=== PATIENT | female | born 1960 | race Two or more races ===

== ENCOUNTER 2020-08-11 15:53 | Emergency (ER) | payer MEDICAID ==
[~2020-08-11] VITALS: Ht 157.5 cm; Wt 59.0 kg
[2020-08-11 15:57] VITALS: BP 163/88
[2020-08-11 17:01] LABS: Urine Bacteria NONE SEEN /hpf (None Seen); Urine Blood Negative /uL (Negative); Urine Specific Gravity 1.006 (1.001-1.035); Urine WBC 4 /hpf (0 - 5)
== END 2020-08-11 17:53 | disposition home or self-care (01) ==
LOC: ER 15:55
DX: N39.0 Urinary tract infection, site not specified (principal); E78.5 Hyperlipidemia, unspecified
CPT/HCPCS: 81001

== ENCOUNTER 2020-08-11 23:17 | Emergency (ER) | payer MEDICAID ==
[~2020-08-11] VITALS: Ht 160 cm; Wt 59.0 kg
[2020-08-11 23:57] LABS: Basophils # (auto) 0 10 ^3/uL (0-0.2); Basophils % (auto) 0.8 % (0.0-2.0); Eosinophils # (auto) 0 10 ^3/uL (0-0.8); Eosinophils % (auto) 0.4 % (0.0-7.0); Hematocrit 43.7 % (36.0-46.0); Hemoglobin 15.3 g/dL (12.2-16.2); Lymphocytes # (auto) 1.3 10 ^3/uL (0.4-5.4); Lymphocytes % (auto) 25.5 % (10.0-50.0); Mean Corpuscular Hemoglobin 33.8 pg (28.0-32.0); Mean Corpuscular Volume 96.5 fL (80.0-100.0); Monocytes # (auto) 0.3 10 ^3/uL (0-1.3); Monocytes % (auto) 5.1 % (0.0-12.0); Neutrophils # (auto) 3.5 10 ^3/uL (1.6-8.6); Neutrophils % (auto) 68.2 % (37.0-80.0); Nucleated Red Blood Cells % 0.2 %; Platelet Count (auto) 85 10^3/uL (140-450); Red Blood Cells 4.52 10^6/uL (4.0-5.20); Red Cell Distribution Width 12.6 % (11.8-14.3); White Blood Cell 5.1 10^3/uL (4.4-10.8)
[2020-08-12 00:17] LABS: Albumin 3.9 g/dL (3.4-5.0); Anion Gap 14 (5-15); BUN/Creatinine Ratio 22.2; Blood Urea Nitrogen 8 mg/dL (7-18); Calcium 8.3 mg/dL (8.5-10.1); Carbon Dioxide 20 mmol/L (21-32); Chloride 103 mmol/L (98-107); GFR African American 238 mL/min; GFR Non-African American 197 mL/min; Glucose 112 mg/dL (74-106); Potassium 3.8 mmol/L (3.5-5.1); Sodium 137 mmol/L (136-145)
[2020-08-12 00:24] LABS: Alanine Aminotransferase 35 U/L (13-56); Alkaline Phosphatase 76 U/L (45-117); Aspartate Aminotransferase 49 U/L (15-37); Bilirubin, Total 1.3 mg/dL (0.2-1.0); Total Protein 7.2 g/dL (6.4-8.2)
[2020-08-12] MEDS ORDERED: LORazepam 0.5 MG TAB PO ONE (02:00)
[2020-08-12] MEDS ORDERED: cefTRIAXone SOD 1,000 MG VL IM ONE (02:45)
[2020-08-12 03:29] LABS: Urine Bacteria FEW /hpf (None Seen); Urine Blood Negative /uL (Negative); Urine Mucus FEW (None Seen); Urine Specific Gravity 1.019 (1.001-1.035); Urine WBC 6 /hpf (0 - 5)
[2020-08-12] MEDS ORDERED: LIDOCAINE 1% HCL (LOCAL ANESTH.) INJ 20ML MDV ONE (03:43)
[2020-08-12] MEDS ORDERED: LIDOCAINE 1% HCL (LOCAL ANESTH.) INJ 20ML MDV ID ONE (03:45)
[2020-08-12 04:08] VITALS: BP 134/61
== END 2020-08-12 04:12 | disposition home or self-care (01) ==
LOC: EDBD 23:17 → ER 23:17
DX: N39.0 Urinary tract infection, site not specified (principal); R25.1 Tremor, unspecified; F41.9 Anxiety disorder, unspecified
CPT/HCPCS: 36415; 80053; 81001; 84484; 85025; 93005; 96372; 99284; J0696; J2001; J7030

== ENCOUNTER 2020-09-12 11:17 | Emergency (ER) | payer MEDICAID ==
[~2020-09-12] VITALS: Ht 157.5 cm; Wt 59.0 kg
[2020-09-12 11:55] VITALS: BP 154/86
[2020-09-12] MEDS ORDERED: PHENAZOPYRIDINE HCL 100 MG TAB PO ONE (12:00)
[2020-09-12 12:26] LABS: Urine Bacteria FEW /hpf (None Seen); Urine Blood Negative /uL (Negative); Urine Mucus FEW (None Seen); Urine Specific Gravity 1.012 (1.001-1.035); Urine WBC 1 /hpf (0 - 5)
== END 2020-09-12 12:30 | disposition home or self-care (01) ==
LOC: ER 11:17
DX: N30.00 Acute cystitis without hematuria (principal); E78.5 Hyperlipidemia, unspecified; Z90.710 Acquired absence of both cervix and uterus
CPT/HCPCS: 81001; 81025

== ENCOUNTER 2020-09-12 19:52 | Emergency (ER) | payer MEDICAID ==
[~2020-09-12] VITALS: Ht 165.1 cm; Wt 63.5 kg
[2020-09-12] MEDS ORDERED: ONDANSETRON HCL 4 MG/2 ML VIAL IM ONE (20:45)
[2020-09-12 23:41] LABS: Basophils # (auto) 0 10 ^3/uL (0-0.2); Hemoglobin 13.6 g/dL (12.2-16.2); Mean Corpuscular Hgb Conc. 35.8 g/dL (32.0-36.0); White Blood Cell 2.8 10^3/uL (4.4-10.8)
[2020-09-12 23:43] LABS: Basophils % (auto) 1.3 % (0.0-2.0); Eosinophils # (auto) 0 10 ^3/uL (0-0.8); Eosinophils % (auto) 0.1 % (0.0-7.0); Hematocrit 37.9 % (36.0-46.0); Lymphocytes # (auto) 0.5 10 ^3/uL (0.4-5.4); Lymphocytes % (auto) 17.3 % (10.0-50.0); Mean Corpuscular Hemoglobin 34.7 pg (28.0-32.0); Monocytes # (auto) 0.2 10 ^3/uL (0-1.3); Monocytes % (auto) 7.2 % (0.0-12.0); Neutrophils # (auto) 2.1 10 ^3/uL (1.6-8.6); Neutrophils % (auto) 74.1 % (37.0-80.0); Nucleated Red Blood Cells % 0.2 %; Red Blood Cells 3.91 10^6/uL (4.0-5.20); Red Cell Distribution Width 13.7 % (11.8-14.3)
[2020-09-12 23:58] LABS: Potassium 3.7 mmol/L (3.5-5.1)
[2020-09-13 00:19] LABS: Platelet Count (auto) 52 10^3/uL (140-450)
[2020-09-13 00:56] VITALS: BP 137/69
== END 2020-09-13 01:48 | disposition home or self-care (01) ==
LOC: EDBD 19:52 → ER 19:52
DX: R10.9 Unspecified abdominal pain (principal); R53.83 Other fatigue; R11.2 Nausea with vomiting, unspecified; E78.5 Hyperlipidemia, unspecified; Z90.710 Acquired absence of both cervix and uterus; Z90.89 Acquired absence of other organs
CPT/HCPCS: 36415; 80048; 83605; 85025; 96372; 99285; J2405

== ENCOUNTER 2020-12-29 12:59 | Inpatient (IN) | payer MEDICAID ==
[~2020-12-29] VITALS: Ht 157.5 cm
[2020-12-29 13:58] LABS: Urine Bacteria FEW /hpf (None Seen); Urine Blood Negative /uL (Negative); Urine Mucus FEW (None Seen); Urine Specific Gravity 1.026 (1.001-1.035); Urine WBC 4 /hpf (0 - 5)
[2020-12-29 13:58] LABS: Basophils # (auto) 0.1 10 ^3/uL (0-0.2); Eosinophils # (auto) 0 10 ^3/uL (0-0.8); Lymphocytes # (auto) 1.1 10 ^3/uL (0.4-5.4); Monocytes # (auto) 0.4 10 ^3/uL (0-1.3)
[2020-12-29 14:01] LABS: Basophils % (auto) 2.2 % (0.0-2.0); Eosinophils % (auto) 0.8 % (0.0-7.0); Hematocrit 44.2 % (36.0-46.0); Hemoglobin 15.2 g/dL (12.2-16.2); Lymphocytes % (auto) 26.2 % (10.0-50.0); Mean Corpuscular Hemoglobin 35.6 pg (28.0-32.0); Mean Corpuscular Hgb Conc. 34.4 g/dL (32.0-36.0); Mean Corpuscular Volume 103.6 fL (80.0-100.0); Neutrophils # (auto) 2.5 10 ^3/uL (1.6-8.6); Neutrophils % (auto) 61.8 % (37.0-80.0); Nucleated Red Blood Cells % 0.1 %; Red Blood Cells 4.27 10^6/uL (4.0-5.20); White Blood Cell 4.1 10^3/uL (4.4-10.8)
[2020-12-29 14:17] LABS: Albumin 3.1 g/dL (3.4-5.0); BUN/Creatinine Ratio 14.3; Calcium 8.4 mg/dL (8.5-10.1); Potassium 3.9 mmol/L (3.5-5.1)
[2020-12-29 14:20] LABS: Bilirubin, Total 1.3 mg/dL (0.2-1.0); Total Protein 7.3 g/dL (6.4-8.2)
[2020-12-29] MEDS ORDERED: ONDANSETRON ODT 4 MG TAB PO ONE (14:30)
[2020-12-29] MEDS ORDERED: cefTRIAXone 1GM/50ML D5W 50 ML IV ONE (14:30)
[2020-12-29] MEDS ORDERED: SODIUM CHLORIDE 0.9% 1,000 ML IV ONE (14:45)
[2020-12-29] MEDS ORDERED: MORPHINE SULFATE INJECTION 2 MG/ML SYRG IV PRN (18:30)
[2020-12-29] MEDS ORDERED: ONDANSETRON HCL 4 MG/2 ML VIAL IV PRN (18:30)
[2020-12-29] MEDS ORDERED: ACETAMINOPHEN 325 MG TAB PO PRN (18:30)
[2020-12-29] MEDS ORDERED: ZOLPIDEM TARTRATE 5 MG TAB PO PRN (18:30)
[2020-12-29] MEDS ORDERED: NITROGLYCERIN 0.4 MG SL TAB SL PRN (18:30)
[2020-12-29] MEDS: SODIUM CHLORIDE 0.9% 1,000 ML IV SCH (19:13)
[2020-12-29 23:11] VITALS: BP 150/74
[2020-12-29] MEDS: ATORVASTATIN 20 MG TAB PO SCH (23:11)
[2020-12-30] MEDS ORDERED: ATO40T PO (00:54)
[2020-12-30] MEDS: MORPHINE SULFATE INJECTION 2 MG/ML SYRG IV PRN ×2 (02:11→06:15)
[2020-12-30 05:00] VITALS: BP 147/79
[2020-12-30 05:51] LABS: Eosinophils # (auto) 0 10 ^3/uL (0-0.8); Eosinophils % (auto) 0.4 % (0.0-7.0); Neutrophils # (auto) 2.3 10 ^3/uL (1.6-8.6)
[2020-12-30 05:53] LABS: Basophils # (auto) 0.1 10 ^3/uL (0-0.2); Basophils % (auto) 1.5 % (0.0-2.0); Hematocrit 40.3 % (36.0-46.0); Hemoglobin 13.9 g/dL (12.2-16.2); Lymphocytes # (auto) 0.8 10 ^3/uL (0.4-5.4); Lymphocytes % (auto) 23.8 % (10.0-50.0); Mean Corpuscular Hemoglobin 35.7 pg (28.0-32.0); Mean Corpuscular Hgb Conc. 34.6 g/dL (32.0-36.0); Mean Corpuscular Volume 103.1 fL (80.0-100.0); Monocytes # (auto) 0.3 10 ^3/uL (0-1.3); Monocytes % (auto) 9.7 % (0.0-12.0); Neutrophils % (auto) 64.6 % (37.0-80.0); Nucleated Red Blood Cells % 0.1 %; Red Blood Cells 3.91 10^6/uL (4.0-5.20); Red Cell Distribution Width 14.5 % (11.8-14.3); White Blood Cell 3.5 10^3/uL (4.4-10.8)
[2020-12-30 07:00] LABS: Albumin 2.6 g/dL (3.4-5.0); Calcium 7.7 mg/dL (8.5-10.1); Potassium 3.6 mmol/L (3.5-5.1)
[2020-12-30 07:02] LABS: BUN/Creatinine Ratio 21.9
[2020-12-30 07:04] LABS: Bilirubin, Total 2.2 mg/dL (0.2-1.0); Total Protein 6.2 g/dL (6.4-8.2)
[2020-12-30] MEDS: SODIUM CHLORIDE 0.9% 1,000 ML IV SCH ×2 (08:59→23:47)
[2020-12-30] MEDS: cefTRIAXone 1GM/50ML D5W 50 ML IV SCH (08:59)
[2020-12-30 09:00] VITALS: BP 125/70
[2020-12-30] MEDS ORDERED: chlordiazePOXIDE HCL 25 MG CAP PO PRN (11:30)
[2020-12-30 13:00] VITALS: BP 129/71
[2020-12-30] MEDS: FOLIC ACID 1 MG, MULTIPLE VITAMIN 10 ML, MAGNESIUM SULF SDV 50% 8 MEQ, THIAMINE INJ 100... INJ SCH ×5 (13:01)
[2020-12-30] MEDS: GABAPENTIN 300 MG CAP PO SCH ×2 (13:54→21:15)
[2020-12-30 17:05] VITALS: BP 127/73
[2020-12-30] MEDS: DOCUSATE SOD 100 MG CAP PO SCH (21:15)
[2020-12-30] MEDS: ATORVASTATIN 20 MG TAB PO SCH (21:15)
[2020-12-30] MEDS: LACTULOSE 20Gm/30ML SOLN PO PRN (21:16)
[2020-12-30 23:02] VITALS: BP 152/85
[2020-12-31 05:11] VITALS: BP 120/84
[2020-12-31] MEDS: GABAPENTIN 300 MG CAP PO SCH ×3 (05:28→21:11)
[2020-12-31] MEDS: LACTULOSE 20Gm/30ML SOLN PO PRN (05:38)
[2020-12-31 05:41] LABS: Eosinophils # (auto) 0.1 10 ^3/uL (0-0.8); Monocytes # (auto) 0.4 10 ^3/uL (0-1.3); Nucleated Red Blood Cells % 0.1 %; White Blood Cell 3.4 10^3/uL (4.4-10.8)
[2020-12-31 05:51] LABS: INR 1.41 (0.9-1.15)
[2020-12-31 06:02] LABS: Basophils # (auto) 0 10 ^3/uL (0-0.2); Basophils % (auto) 1.1 % (0.0-2.0); Eosinophils % (auto) 1.5 % (0.0-7.0); Hematocrit 41.5 % (36.0-46.0); Hemoglobin 14.6 g/dL (12.2-16.2); Lymphocytes # (auto) 0.8 10 ^3/uL (0.4-5.4); Lymphocytes % (auto) 22.6 % (10.0-50.0); Mean Corpuscular Hemoglobin 36.5 pg (28.0-32.0); Mean Corpuscular Hgb Conc. 35.2 g/dL (32.0-36.0); Mean Corpuscular Volume 103.6 fL (80.0-100.0); Monocytes % (auto) 11.2 % (0.0-12.0); Neutrophils # (auto) 2.2 10 ^3/uL (1.6-8.6); Neutrophils % (auto) 63.6 % (37.0-80.0); Red Cell Distribution Width 14.2 % (11.8-14.3)
[2020-12-31 06:19] LABS: Albumin 2.5 g/dL (3.4-5.0); Calcium 7.8 mg/dL (8.5-10.1); Potassium 3.6 mmol/L (3.5-5.1)
[2020-12-31 06:21] LABS: BUN/Creatinine Ratio 19.5
[2020-12-31 06:23] LABS: Bilirubin, Total 2.4 mg/dL (0.2-1.0); Total Protein 6.1 g/dL (6.4-8.2)
[2020-12-31 08:59] VITALS: BP 129/85
[2020-12-31] MEDS: cefTRIAXone 1GM/50ML D5W 50 ML IV SCH (09:04)
[2020-12-31] MEDS: DOCUSATE SOD 100 MG CAP PO SCH ×2 (09:05→21:15)
[2020-12-31] MEDS: SODIUM CHLORIDE 0.9% 1,000 ML IV SCH ×3 (09:05→23:45)
[2020-12-31] MEDS: FOLIC ACID 1 MG, MULTIPLE VITAMIN 10 ML, MAGNESIUM SULF SDV 50% 8 MEQ, THIAMINE INJ 100... INJ SCH ×5 (12:27)
[2020-12-31 13:00] VITALS: BP 161/99
[2020-12-31 16:59] VITALS: BP 140/80
[2020-12-31] MEDS: ATORVASTATIN 20 MG TAB PO SCH (21:11)
[2020-12-31 22:00] VITALS: BP 133/76
[2021-01-01 05:00] VITALS: BP 136/76
[2021-01-01] MEDS: GABAPENTIN 300 MG CAP PO SCH ×2 (05:14→14:00)
[2021-01-01 05:48] LABS: Basophils # (auto) 0 10 ^3/uL (0-0.2); Eosinophils # (auto) 0.1 10 ^3/uL (0-0.8); Hemoglobin 14.1 g/dL (12.2-16.2); Lymphocytes # (auto) 0.8 10 ^3/uL (0.4-5.4); Monocytes # (auto) 0.4 10 ^3/uL (0-1.3); Nucleated Red Blood Cells % 0.2 %; Red Cell Distribution Width 14.2 % (11.8-14.3); White Blood Cell 3.4 10^3/uL (4.4-10.8)
[2021-01-01 05:52] LABS: Basophils % (auto) 1.2 % (0.0-2.0); Eosinophils % (auto) 2.5 % (0.0-7.0); Hematocrit 40.9 % (36.0-46.0); Lymphocytes % (auto) 24.9 % (10.0-50.0); Mean Corpuscular Hemoglobin 35.8 pg (28.0-32.0); Mean Corpuscular Hgb Conc. 34.5 g/dL (32.0-36.0); Mean Corpuscular Volume 103.8 fL (80.0-100.0); Neutrophils % (auto) 59.4 % (37.0-80.0); Red Blood Cells 3.94 10^6/uL (4.0-5.20)
[2021-01-01 06:22] LABS: Albumin 2.6 g/dL (3.4-5.0); BUN/Creatinine Ratio 25.7; Calcium 7.9 mg/dL (8.5-10.1)
[2021-01-01 06:25] LABS: Bilirubin, Total 2.1 mg/dL (0.2-1.0)
[2021-01-01 09:00] VITALS: BP 155/97
[2021-01-01] MEDS: SODIUM CHLORIDE 0.9% 1,000 ML IV SCH (09:00)
[2021-01-01] MEDS: cefTRIAXone 1GM/50ML D5W 50 ML IV SCH (10:30)
[2021-01-01] MEDS: DOCUSATE SOD 100 MG CAP PO SCH (10:30)
[2021-01-01] MEDS: FOLIC ACID 1 MG, MULTIPLE VITAMIN 10 ML, MAGNESIUM SULF SDV 50% 8 MEQ, THIAMINE INJ 100... INJ SCH ×5 (12:00)
== END 2021-01-01 14:30 | disposition home or self-care (01) | DRG 280 ==
LOC: ER 12:59 → TELE 18:27 → TELE-CENTR 23:11
PROVIDERS: ADMIT Internal Medicine; ATTEND Internal Medicine
DX: K70.30 Alcoholic cirrhosis of liver without ascites (principal); N17.9 Acute kidney failure, unspecified; K76.6 Portal hypertension; N39.0 Urinary tract infection, site not specified; Z20.822 Contact with and (suspected) exposure to COVID-19; E78.5 Hyperlipidemia, unspecified; F41.9 Anxiety disorder, unspecified; Y90.4 Blood alcohol level of 80-99 mg/100 ml; F10.10 Alcohol abuse, uncomplicated; Z83.3 Family history of diabetes mellitus; Z90.710 Acquired absence of both cervix and uterus
CPT/HCPCS: 36415; 74176; 76700; 80053; 80320; 81001; 82105; 83690; 85025; 85610; 87081; 87426; 96361; 96365; G0378; J0696; J2405; Q0162

== ENCOUNTER 2021-03-06 08:30 | Inpatient (IN) | payer MEDICAID ==
[~2021-03-06] VITALS: Ht 157.5 cm; Wt 74.8 kg
[~2021-03-06 08:30] MED LIST: ATO40T PO
[2021-03-06 08:56] LABS: Urine Bacteria NONE SEEN /hpf (None Seen); Urine Blood Negative /uL (Negative); Urine Mucus FEW (None Seen); Urine Specific Gravity 1.012 (1.001-1.035); Urine WBC 6 /hpf (0 - 5)
[2021-03-06 10:04] LABS: Basophils # (auto) 0 10 ^3/uL (0-0.2); Eosinophils # (auto) 0 10 ^3/uL (0-0.8); Hemoglobin 14.1 g/dL (12.2-16.2); Lymphocytes # (auto) 0.6 10 ^3/uL (0.4-5.4); Mean Corpuscular Hemoglobin 35.2 pg (28.0-32.0); Monocytes # (auto) 0.1 10 ^3/uL (0-1.3); Neutrophils % (auto) 74.8 % (37.0-80.0); Red Cell Distribution Width 12.9 % (11.8-14.3)
[2021-03-06 10:09] LABS: Basophils % (auto) 0.7 % (0.0-2.0); Eosinophils % (auto) 0.1 % (0.0-7.0); Hematocrit 39.9 % (36.0-46.0); Lymphocytes % (auto) 19.9 % (10.0-50.0); Mean Corpuscular Hgb Conc. 35.4 g/dL (32.0-36.0); Mean Corpuscular Volume 99.6 fL (80.0-100.0); Monocytes % (auto) 4.5 % (0.0-12.0); Neutrophils # (auto) 2.2 10 ^3/uL (1.6-8.6)
[2021-03-06 10:19] LABS: Potassium 3.6 mmol/L (3.5-5.1)
[2021-03-06 10:26] LABS: Albumin 3.1 g/dL (3.4-5.0); BUN/Creatinine Ratio 16.2; Bilirubin, Total 1.5 mg/dL (0.2-1.0); Calcium 7.9 mg/dL (8.5-10.1); Total Protein 6.7 g/dL (6.4-8.2)
[2021-03-06] MEDS ORDERED: levoFLOXacin 500MG 100 ML IV ONE (13:15)
[2021-03-06] MEDS ORDERED: LEVO500T31 PO (13:20)
[2021-03-06] MEDS ORDERED: ONDA-144 PO (13:20)
[2021-03-06] MEDS ORDERED: MORPHINE SULFATE 4 MG/ML SYR/VIAL IV ONE (14:45)
[2021-03-06] MEDS ORDERED: HYDROcodone-ACET 5/325MG TAB PO ONE (14:45)
[2021-03-06] MEDS ORDERED: ACETAMINOPHEN 325 MG TAB PO PRN (15:15)
[2021-03-06] MEDS ORDERED: NITROGLYCERIN 0.4 MG SL TAB SL PRN (15:15)
[2021-03-06] MEDS ORDERED: DOCUSATE SOD 100 MG CAP PO PRN (15:15)
[2021-03-06] MEDS ORDERED: TEMAZEPAM 15 MG CAP PO PRN (15:15)
[2021-03-06] MEDS ORDERED: MORPHINE SULFATE INJECTION 2 MG/ML SYRG IV PRN (15:15)
[2021-03-06] MEDS: SODIUM CHLORIDE 0.9% 1,000 ML IV SCH (15:31)
[2021-03-06] MEDS: ONDANSETRON HCL 4 MG/2 ML VIAL IV PRN ×2 (18:25→22:49)
[2021-03-06] MEDS ORDERED: PIPERACILLIN-TAZOB 2.25GM 50 ML IV SCH (22:00)
[2021-03-06] MEDS: PIPERACILLIN-TAZOB 3.375GM 100 ML IV SCH (22:28)
[2021-03-07] MEDS: MORPHINE SULFATE INJECTION 2 MG/ML SYRG IV PRN ×3 (02:53→18:57)
[2021-03-07 05:00] VITALS: BP 149/81
[2021-03-07 06:28] LABS: Basophils # (auto) 0 10 ^3/uL (0-0.2); Basophils % (auto) 0.4 % (0.0-2.0); Eosinophils # (auto) 0 10 ^3/uL (0-0.8); Hemoglobin 13.4 g/dL (12.2-16.2); Monocytes # (auto) 0.2 10 ^3/uL (0-1.3); Monocytes % (auto) 7.6 % (0.0-12.0)
[2021-03-07 06:29] LABS: Albumin 2.8 g/dL (3.4-5.0); BUN/Creatinine Ratio 18.9; Calcium 7.5 mg/dL (8.5-10.1); Potassium 3.3 mmol/L (3.5-5.1)
[2021-03-07 06:31] LABS: Eosinophils % (auto) 1.1 % (0.0-7.0); Hematocrit 38.7 % (36.0-46.0); Lymphocytes % (auto) 30.9 % (10.0-50.0); Mean Corpuscular Hemoglobin 34.7 pg (28.0-32.0); Mean Corpuscular Hgb Conc. 34.5 g/dL (32.0-36.0); Mean Corpuscular Volume 100.5 fL (80.0-100.0); Nucleated Red Blood Cells % 0.1 %; Red Blood Cells 3.85 10^6/uL (4.0-5.20); Red Cell Distribution Width 12.7 % (11.8-14.3); White Blood Cell 3.2 10^3/uL (4.4-10.8)
[2021-03-07 06:33] LABS: Bilirubin, Total 2.3 mg/dL (0.2-1.0); Total Protein 5.8 g/dL (6.4-8.2)
[2021-03-07] MEDS: PIPERACILLIN-TAZOB 3.375GM 100 ML IV SCH ×3 (06:33→21:18)
[2021-03-07 08:54] VITALS: BP 127/73
[2021-03-07] MEDS: ONDANSETRON HCL 4 MG/2 ML VIAL IV PRN ×2 (09:52→15:16)
[2021-03-07] MEDS: SODIUM CHLORIDE 0.9% 1,000 ML IV SCH (10:00)
[2021-03-07] MEDS ORDERED: ENOXAPARIN SOD 30 MG/0.3 ML SYRINGE SC SCH (10:00)
[2021-03-07 12:28] VITALS: BP 139/74
[2021-03-07] MEDS ORDERED: GABA300C10 PO (14:36)
[2021-03-07] MEDS ORDERED: CIPR-173 PO (14:38)
[2021-03-07] MEDS ORDERED: POTASSIUM CHL 20 Meq TABLET PO ONE (15:45)
[2021-03-07 16:40] VITALS: BP 134/76
[2021-03-07] MEDS: FOLIC ACID 1 MG, MULTIPLE VITAMIN 10 ML, MAGNESIUM SULF SDV 50% 8 MEQ, THIAMINE INJ 100... INJ SCH ×5 (19:30)
[2021-03-07] MEDS: GABAPENTIN 300 MG CAP PO SCH (21:18)
[2021-03-07 22:00] VITALS: BP 132/78
[2021-03-08] MEDS: SODIUM CHLORIDE 0.9% 1,000 ML IV SCH ×2 (00:35→19:00)
[2021-03-08 05:00] VITALS: BP 118/73
[2021-03-08] MEDS: GABAPENTIN 300 MG CAP PO SCH ×3 (05:29→21:43)
[2021-03-08] MEDS: PIPERACILLIN-TAZOB 3.375GM 100 ML IV SCH ×3 (05:29→19:00)
[2021-03-08] MEDS: MORPHINE SULFATE INJECTION 2 MG/ML SYRG IV PRN (05:30)
[2021-03-08 09:00] VITALS: BP 127/77
[2021-03-08] MEDS: FOLIC ACID 1 MG, MULTIPLE VITAMIN 10 ML, MAGNESIUM SULF SDV 50% 8 MEQ, THIAMINE INJ 100... INJ SCH ×10 (12:53→14:49)
[2021-03-08 13:00] VITALS: BP 124/78
[2021-03-08 17:00] VITALS: BP 125/75
[2021-03-08] MEDS ORDERED: PIPERACILLIN-TAZOB 3.375GM 100 ML IV ONE (22:00)
[2021-03-08] MEDS ORDERED: LOPERAMIDE HCL 2 MG CAP PO PRN (22:15)
[2021-03-08 22:28] VITALS: BP 114/69
[2021-03-09 05:00] VITALS: BP 123/81
[2021-03-09] MEDS: PIPERACILLIN-TAZOB 3.375GM 100 ML IV SCH ×3 (06:28→22:00)
[2021-03-09] MEDS: GABAPENTIN 300 MG CAP PO SCH ×3 (06:30→21:58)
[2021-03-09 09:00] VITALS: BP 125/76
[2021-03-09 13:00] VITALS: BP 130/84
[2021-03-09] MEDS: FOLIC ACID 1 MG, MULTIPLE VITAMIN 10 ML, MAGNESIUM SULF SDV 50% 8 MEQ, THIAMINE INJ 100... INJ SCH ×5 (13:41)
[2021-03-09] MEDS: SODIUM CHLORIDE 0.9% 1,000 ML IV SCH (13:51)
[2021-03-09 17:00] VITALS: BP 137/79
[2021-03-09] MEDS: metroNIDAZOLE 500MG/100ML 100 ML IV SCH (20:59)
[2021-03-10] MEDS: SODIUM CHLORIDE 0.9% 1,000 ML IV SCH ×2 (02:35→19:26)
[2021-03-10 05:00] VITALS: BP 135/88
[2021-03-10 05:26] LABS: Basophils # (auto) 0 10 ^3/uL (0-0.2); Eosinophils # (auto) 0.1 10 ^3/uL (0-0.8); Hematocrit 36.2 % (36.0-46.0); Lymphocytes # (auto) 1.2 10 ^3/uL (0.4-5.4); Neutrophils # (auto) 1.3 10 ^3/uL (1.6-8.6); Red Blood Cells 3.59 10^6/uL (4.0-5.20)
[2021-03-10 05:29] LABS: Basophils % (auto) 0.7 % (0.0-2.0); Eosinophils % (auto) 2.3 % (0.0-7.0); Hemoglobin 12.6 g/dL (12.2-16.2); Mean Corpuscular Hemoglobin 35.1 pg (28.0-32.0); Mean Corpuscular Hgb Conc. 34.8 g/dL (32.0-36.0); Mean Corpuscular Volume 100.7 fL (80.0-100.0); Monocytes # (auto) 0.4 10 ^3/uL (0-1.3); Monocytes % (auto) 12.6 % (0.0-12.0); Neutrophils % (auto) 44.4 % (37.0-80.0); Nucleated Red Blood Cells % 0.1 %; Red Cell Distribution Width 13.2 % (11.8-14.3)
[2021-03-10] MEDS: metroNIDAZOLE 500MG/100ML 100 ML IV SCH ×2 (05:30→14:03)
[2021-03-10] MEDS: GABAPENTIN 300 MG CAP PO SCH ×3 (05:31→22:10)
[2021-03-10 05:46] LABS: Albumin 2.6 g/dL (3.4-5.0); BUN/Creatinine Ratio 24.2; Calcium 7.9 mg/dL (8.5-10.1); Potassium 3.3 mmol/L (3.5-5.1)
[2021-03-10 05:49] LABS: Bilirubin, Total 1.4 mg/dL (0.2-1.0); Total Protein 5.2 g/dL (6.4-8.2)
[2021-03-10] MEDS: PIPERACILLIN-TAZOB 3.375GM 100 ML IV SCH ×2 (06:35→14:03)
[2021-03-10 09:00] VITALS: BP 127/81
[2021-03-10] MEDS: DOCUSATE SOD 100 MG CAP PO PRN (10:39)
[2021-03-10] MEDS: FOLIC ACID 1 MG, MULTIPLE VITAMIN 10 ML, MAGNESIUM SULF SDV 50% 8 MEQ, THIAMINE INJ 100... INJ SCH ×5 (12:05)
[2021-03-10 13:00] VITALS: BP 123/78
[2021-03-10 17:00] VITALS: BP 143/87
[2021-03-10 22:00] VITALS: BP 124/74
[2021-03-10] MEDS: VANCOMYCIN HCL 125MG/5ML ORAL SOL PO SCH (23:35)
[2021-03-11 05:00] VITALS: BP 125/78
[2021-03-11 05:49] LABS: Basophils # (auto) 0 10 ^3/uL (0-0.2); Eosinophils # (auto) 0.1 10 ^3/uL (0-0.8); Hemoglobin 12.7 g/dL (12.2-16.2); Monocytes # (auto) 0.4 10 ^3/uL (0-1.3); Neutrophils # (auto) 1.3 10 ^3/uL (1.6-8.6); Nucleated Red Blood Cells % 0.1 %
[2021-03-11 05:51] LABS: Basophils % (auto) 0.6 % (0.0-2.0); Eosinophils % (auto) 2.1 % (0.0-7.0); Hematocrit 36.8 % (36.0-46.0); Lymphocytes # (auto) 1.2 10 ^3/uL (0.4-5.4); Lymphocytes % (auto) 39.7 % (10.0-50.0); Mean Corpuscular Hemoglobin 34.9 pg (28.0-32.0); Mean Corpuscular Hgb Conc. 34.4 g/dL (32.0-36.0); Mean Corpuscular Volume 101.5 fL (80.0-100.0); Neutrophils % (auto) 43.6 % (37.0-80.0); Red Blood Cells 3.62 10^6/uL (4.0-5.20); Red Cell Distribution Width 13.8 % (11.8-14.3)
[2021-03-11 06:05] LABS: Albumin 2.6 g/dL (3.4-5.0); Calcium 7.8 mg/dL (8.5-10.1); Potassium 3.5 mmol/L (3.5-5.1)
[2021-03-11 06:09] LABS: BUN/Creatinine Ratio 17.4; Bilirubin, Total 1.1 mg/dL (0.2-1.0); Total Protein 5.3 g/dL (6.4-8.2)
[2021-03-11] MEDS: GABAPENTIN 300 MG CAP PO SCH ×2 (06:10→15:05)
[2021-03-11] MEDS: VANCOMYCIN HCL 125MG/5ML ORAL SOL PO SCH ×3 (06:11→18:00)
[2021-03-11 08:00] VITALS: BP 136/78
[2021-03-11 09:00] VITALS: BP 136/78
[2021-03-11] MEDS: SODIUM CHLORIDE 0.9% 1,000 ML IV SCH (11:42)
[2021-03-11] MEDS: FOLIC ACID 1 MG, MULTIPLE VITAMIN 10 ML, MAGNESIUM SULF SDV 50% 8 MEQ, THIAMINE INJ 100... INJ SCH ×5 (11:44)
[2021-03-11 12:29] VITALS: BP 133/78
[2021-03-11] MEDS: DOCUSATE SOD 100 MG CAP PO PRN (15:05)
[2021-03-11 17:26] VITALS: BP 145/91
[2021-03-11 18:01] VITALS: BP 145/91
== END 2021-03-11 19:10 | disposition home or self-care (01) | DRG 463 ==
LOC: ER 08:30 → TELE 15:12 → TELE-CENTR 21:25
PROVIDERS: ADMIT Internal Medicine; ATTEND Internal Medicine
DX: N10 Acute pyelonephritis (principal); A04.72 Enterocolitis due to Clostridium difficile, not specified as recurrent; E78.5 Hyperlipidemia, unspecified; F10.139 Alcohol abuse with withdrawal, unspecified; Y90.9 Presence of alcohol in blood, level not specified; Z20.822 Contact with and (suspected) exposure to COVID-19; Z83.3 Family history of diabetes mellitus; Z90.710 Acquired absence of both cervix and uterus; Z91.041 Radiographic dye allergy status
CPT/HCPCS: 36415; 74176; 80053; 81001; 83690; 85025; 87426; 87493; 96361; 96365; G0378; J1956; J2405; J2543; J3490

== ENCOUNTER 2021-03-23 05:58 | Emergency (ER) | payer MEDICAID ==
[~2021-03-23] VITALS: Ht 157.5 cm; Wt 63.5 kg
[~2021-03-23 05:58] MED LIST changes: +CIPR-173 PO; +GABA300C10 PO; +LEVO500T31 PO; +ONDA-144 PO
[2021-03-23 07:41] VITALS: BP 160/80
[2021-03-23 07:48] LABS: Urine Bacteria NONE SEEN /hpf (None Seen); Urine Blood Negative /uL (Negative); Urine Mucus FEW (None Seen); Urine Specific Gravity 1.026 (1.001-1.035); Urine WBC 39 /hpf (0 - 5)
[2021-03-23] MEDS ORDERED: cefTRIAXone SOD 1,000 MG VL IM ONE (08:00)
== END 2021-03-23 08:21 | disposition home or self-care (01) ==
LOC: ER 05:58
DX: N39.0 Urinary tract infection, site not specified (principal); E78.5 Hyperlipidemia, unspecified; Z90.89 Acquired absence of other organs; Z90.710 Acquired absence of both cervix and uterus; Z79.2 Long term (current) use of antibiotics; Z79.899 Other long term (current) drug therapy; Z88.8 Allergy status to other drugs, medicaments and biological substances
CPT/HCPCS: 81001; 87086; 96372; 99283; J0696

== ENCOUNTER 2021-05-02 15:05 | Emergency (ER) | payer MEDICAID ==
[~2021-05-02] VITALS: Ht 157.5 cm; Wt 63.5 kg
[2021-05-02 15:42] LABS: Urine Bacteria NONE SEEN /hpf (None Seen); Urine Blood Negative /uL (Negative); Urine Specific Gravity 1.005 (1.001-1.035); Urine WBC 2 /hpf (0 - 5)
[2021-05-02 17:24] VITALS: BP 162/91
[2021-05-02] MEDS ORDERED: CIPR-173 PO (17:26)
== END 2021-05-02 17:47 | disposition home or self-care (01) ==
LOC: ER 15:05
DX: N39.0 Urinary tract infection, site not specified (principal); E78.5 Hyperlipidemia, unspecified; Z90.710 Acquired absence of both cervix and uterus
CPT/HCPCS: 81001

== ENCOUNTER 2021-08-13 20:45 | Emergency (ER) | payer MEDICAID ==
[~2021-08-13] VITALS: Ht 157.5 cm; Wt 63.0 kg
[2021-08-13 22:45] LABS: Urine Bacteria FEW /hpf (None Seen); Urine Blood TRACE /uL (Negative); Urine Mucus FEW (None Seen); Urine Specific Gravity 1.026 (1.001-1.035); Urine WBC 2 /hpf (0 - 5)
[2021-08-14] MEDS ORDERED: ONDANSETRON HCL 4 MG/2 ML VIAL IV ONE
[2021-08-14] MEDS ORDERED: chlordiazePOXIDE HCL 25 MG CAP PO ONE
[2021-08-14] MEDS ORDERED: cefTRIAXone 1GM/50ML D5W 50 ML IV ONE
[2021-08-14] MEDS ORDERED: THIAMINE 100mg/ml INJ (200mg/2ml VIAL) IV ONE
[2021-08-14] MEDS ORDERED: FOLIC ACID 1 MG in D5W 5% 50 ML INJ ONE ×2
[2021-08-14] MEDS ORDERED: SODIUM CHLORIDE 0.9% 1,000 ML IV ONE
[2021-08-14 00:37] LABS: Basophils # (auto) 0 10 ^3/uL (0-0.2); Eosinophils # (auto) 0 10 ^3/uL (0-0.8); Hemoglobin 13.4 g/dL (12.2-16.2); Lymphocytes # (auto) 1.7 10 ^3/uL (0.4-5.4); Lymphocytes % (auto) 29.9 % (10.0-50.0); Monocytes # (auto) 0.3 10 ^3/uL (0-1.3); Monocytes % (auto) 5.4 % (0.0-12.0); White Blood Cell 5.7 10^3/uL (4.4-10.8)
[2021-08-14 00:40] LABS: Basophils % (auto) 0.6 % (0.0-2.0); Eosinophils % (auto) 0.1 % (0.0-7.0); Hematocrit 37.5 % (36.0-46.0); Mean Corpuscular Hemoglobin 34.2 pg (28.0-32.0); Mean Corpuscular Hgb Conc. 35.9 g/dL (32.0-36.0); Mean Corpuscular Volume 95.4 fL (80.0-100.0); Neutrophils # (auto) 3.7 10 ^3/uL (1.6-8.6); Nucleated Red Blood Cells % 0.2 %; Red Blood Cells 3.93 10^6/uL (4.0-5.20); Red Cell Distribution Width 13.6 % (11.8-14.3)
[2021-08-14 01:45] VITALS: BP 115/63
[2021-08-14 02:04] LABS: Calcium 7.6 mg/dL (8.5-10.1); Magnesium 1.7 mg/dL (1.6-2.6); Potassium 3.8 mmol/L (3.5-5.1)
[2021-08-14 02:07] LABS: BUN/Creatinine Ratio 29.7
[2021-08-14 02:09] LABS: Total Protein 5.8 g/dL (6.4-8.2)
[2021-08-14] MEDS ORDERED: CEFD300C2 PO (03:05)
== END 2021-08-14 03:25 | disposition home or self-care (01) ==
LOC: ER 20:45
DX: N39.0 Urinary tract infection, site not specified (principal); E78.5 Hyperlipidemia, unspecified; Z90.710 Acquired absence of both cervix and uterus
CPT/HCPCS: 36415; 80053; 81001; 83605; 83735; 85025; 87086; 96365; 96375; 99284; J0696; J2405; J3411; J7030; J7060

== ENCOUNTER 2021-12-25 17:56 | Emergency (ER) | payer MEDICAID ==
[~2021-12-25] VITALS: Ht 157.5 cm; Wt 63.0 kg
[~2021-12-25 17:56] MED LIST changes: +CEFD300C2 PO
[2021-12-25 18:24] VITALS: BP 126/68
[2021-12-25] MEDS ORDERED: ONDANSETRON ODT 4 MG TAB PO ONE (19:30)
[2021-12-25] MEDS ORDERED: cefTRIAXone SOD 1,000 MG VL IM ONE (19:30)
[2021-12-25] MEDS ORDERED: ACETAMINOPHEN 500 MG TAB PO ONE (20:15)
[2021-12-25] MEDS ORDERED: KETOROLAC TROMETH 30 MG/ML 1ML VIAL IM ONE (20:30)
[2021-12-25 20:49] LABS: Urine Bacteria FEW /hpf (None Seen); Urine Blood Negative /uL (Negative); Urine Mucus FEW (None Seen); Urine Specific Gravity 1.016 (1.001-1.035); Urine WBC 2 /hpf (0 - 5)
[2021-12-25] MEDS ORDERED: CIPR500T4 PO (21:43)
[2021-12-25] MEDS ORDERED: ONDA-144 PO (21:43)
[2021-12-25] MEDS ORDERED: CIPROFLOXACIN HCL 500 MG TAB PO ONE (21:45)
== END 2021-12-25 22:24 | disposition home or self-care (01) ==
LOC: EDUNIT# 17:56 → ER 17:56 → EDBD 17:56 → ER 20:12
DX: N39.0 Urinary tract infection, site not specified (principal); E78.5 Hyperlipidemia, unspecified; Z90.710 Acquired absence of both cervix and uterus; Z90.89 Acquired absence of other organs; Z79.2 Long term (current) use of antibiotics; Z79.899 Other long term (current) drug therapy; Z88.8 Allergy status to other drugs, medicaments and biological substances
CPT/HCPCS: 81001; 96372; 99284; J0696; J1885; Q0162

== ENCOUNTER 2022-03-12 16:10 | Inpatient (IN) | payer MEDICAID ==
[~2022-03-12] VITALS: Ht 157.5 cm; Wt 66.0 kg
[~2022-03-12 16:10] MED LIST changes: +CIPR500T4 PO
[2022-03-12 19:01] LABS: Basophils # (auto) 0 10 ^3/uL (0-0.2); Eosinophils # (auto) 0 10 ^3/uL (0-0.8); Hematocrit 43.1 % (36.0-46.0); Mean Corpuscular Volume 96.8 fL (80.0-100.0); Nucleated Red Blood Cells % 0.1 %
[2022-03-12 19:03] LABS: Basophils % (auto) 0.6 % (0.0-2.0); Eosinophils % (auto) 0.1 % (0.0-7.0); Hemoglobin 14.7 g/dL (12.2-16.2); Lymphocytes # (auto) 0.3 10 ^3/uL (0.4-5.4); Lymphocytes % (auto) 10.6 % (10.0-50.0); Mean Corpuscular Hgb Conc. 34.1 g/dL (32.0-36.0); Monocytes # (auto) 0.3 10 ^3/uL (0-1.3); Neutrophils % (auto) 77.7 % (37.0-80.0); Red Blood Cells 4.46 10^6/uL (4.0-5.20); Red Cell Distribution Width 15.2 % (11.8-14.3); White Blood Cell 2.5 10^3/uL (4.4-10.8)
[2022-03-12 19:07] LABS: Urine Bacteria NONE SEEN /hpf (None Seen); Urine Blood Negative /uL (Negative); Urine Mucus FEW (None Seen); Urine Specific Gravity 1.029 (1.001-1.035); Urine WBC 9 /hpf (0 - 5)
[2022-03-12 19:28] LABS: Albumin 3.3 g/dL (3.4-5.0); Calcium 8.2 mg/dL (8.5-10.1); Potassium 3.6 mmol/L (3.5-5.1)
[2022-03-12] MEDS ORDERED: KETOROLAC TROMETH 30 MG/ML 1ML VIAL IV ONE (19:30)
[2022-03-12] MEDS ORDERED: ONDANSETRON HCL 4 MG/2 ML VIAL IV ONE (19:30)
[2022-03-12] MEDS ORDERED: MORPHINE SULFATE 4 MG/ML SYR/VIAL IV ONE (19:30)
[2022-03-12 19:33] LABS: Bilirubin, Total 3.4 mg/dL (0.2-1.0); Total Protein 6.4 g/dL (6.4-8.2)
[2022-03-12 20:13] LABS: Magnesium 1.6 mg/dL (1.6-2.6)
[2022-03-12 20:42] LABS: Lactic Acid w/Reflex 2.1 mmol/L (0.4-2.0)
[2022-03-13] MEDS ORDERED: PIPERACILLIN-TAZOB 3.375GM 100 ML IV ONE (01:30)
[2022-03-13] MEDS ORDERED: KETOROLAC TROMETH 30 MG/ML 1ML VIAL IV ONE (02:30)
[2022-03-13] MEDS ORDERED: DOCUSATE SOD 100 MG CAP PO PRN (03:00)
[2022-03-13] MEDS ORDERED: DEXTROSE (50%) 50ML SYRG IV PRN (03:00)
[2022-03-13] MEDS ORDERED: TEMAZEPAM 15 MG CAP PO PRN (03:00)
[2022-03-13] MEDS ORDERED: MORPHINE SULFATE INJ 2 MG/ml SYRG IV PRN ×2 (03:00→04:30)
[2022-03-13] MEDS ORDERED: ONDANSETRON HCL 4 MG/2 ML VIAL IV PRN (03:00)
[2022-03-13] MEDS ORDERED: NITROGLYCERIN 0.4 MG SL TAB SL PRN (04:30)
[2022-03-13] MEDS: SODIUM CHLORIDE 0.9% 1,000 ML IV SCH ×2 (05:15→19:40)
[2022-03-13 06:23] LABS: Basophils # (auto) 0 10 ^3/uL (0-0.2); Eosinophils # (auto) 0 10 ^3/uL (0-0.8); Hemoglobin 13.7 g/dL (12.2-16.2); Monocytes # (auto) 0.3 10 ^3/uL (0-1.3); Nucleated Red Blood Cells % 0.1 %
[2022-03-13 06:25] LABS: Basophils % (auto) 0.9 % (0.0-2.0); Eosinophils % (auto) 1.2 % (0.0-7.0); Hematocrit 39.4 % (36.0-46.0); Lymphocytes # (auto) 0.7 10 ^3/uL (0.4-5.4); Mean Corpuscular Hemoglobin 33.7 pg (28.0-32.0); Mean Corpuscular Hgb Conc. 34.6 g/dL (32.0-36.0); Mean Corpuscular Volume 97.4 fL (80.0-100.0); Monocytes % (auto) 10.6 % (0.0-12.0); Neutrophils # (auto) 1.7 10 ^3/uL (1.6-8.6); Neutrophils % (auto) 60.3 % (37.0-80.0); Red Blood Cells 4.05 10^6/uL (4.0-5.20); Red Cell Distribution Width 15.1 % (11.8-14.3); White Blood Cell 2.8 10^3/uL (4.4-10.8)
[2022-03-13 06:57] LABS: Potassium 3.4 mmol/L (3.5-5.1)
[2022-03-13] MEDS: InsuLIN REG 1unit/0.01ml Soln (100units/ml) SC SCH ×3 (07:00→17:00)
[2022-03-13 07:04] LABS: BUN/Creatinine Ratio 18.9; Calcium 8.2 mg/dL (8.5-10.1); Total Protein 6.1 g/dL (6.4-8.2)
[2022-03-13] MEDS: PIPERACILLIN-TAZOB 3.375GM 100 ML IV SCH ×2 (07:47→11:12)
[2022-03-13] MEDS: ACCU-CHEK COMFORT CURVE STRIP VI SCH ×4 (08:01→22:48)
[2022-03-13] MEDS: FAMOTIDINE (10MG/ML) 2ML VL IV SCH ×2 (11:13→22:48)
[2022-03-13] MEDS ORDERED: cefTRIAXone 1GM/50ML D5W 50 ML IV ONE (13:15)
[2022-03-13 13:20] VITALS: BP 129/76
[2022-03-13 17:15] LABS: % Iron Saturation 63.1 % (15-50)
[2022-03-13 17:25] LABS: Ferritin 323.5 ng/mL (10-322); Free T4 (Free Thyroxine) 1.31 ng/dL (0.89-1.76); Thyroid Stimulating Hormone 1.79 uIU/mL (0.358-3.74)
[2022-03-13 17:35] VITALS: BP 135/82
[2022-03-13 20:00] VITALS: BP 111/66
[2022-03-13 22:00] VITALS: BP 111/66
[2022-03-13] MEDS ORDERED: InsuLIN REG 1unit/0.01ml Soln (100units/ml) SC SCH (22:00)
[2022-03-14] MEDS: SODIUM CHLORIDE 0.9% 1,000 ML IV SCH ×2 (01:19→17:56)
[2022-03-14] MEDS: IBUPROFEN 600 MG TAB PO PRN (04:52)
[2022-03-14 05:00] VITALS: BP 124/76
[2022-03-14 05:04] LABS: Basophils # (auto) 0 10 ^3/uL (0-0.2); Eosinophils # (auto) 0 10 ^3/uL (0-0.8); Hemoglobin 13.6 g/dL (12.2-16.2); Mean Corpuscular Hemoglobin 33.9 pg (28.0-32.0); Mean Corpuscular Hgb Conc. 34.5 g/dL (32.0-36.0); Mean Corpuscular Volume 98.3 fL (80.0-100.0); Monocytes # (auto) 0.3 10 ^3/uL (0-1.3); Neutrophils # (auto) 1.5 10 ^3/uL (1.6-8.6)
[2022-03-14 05:07] LABS: Basophils % (auto) 1.2 % (0.0-2.0); Eosinophils % (auto) 1.7 % (0.0-7.0); Hematocrit 39.6 % (36.0-46.0); Lymphocytes % (auto) 33.7 % (10.0-50.0); Monocytes % (auto) 10.5 % (0.0-12.0); Neutrophils % (auto) 52.9 % (37.0-80.0); Nucleated Red Blood Cells % 0.1 %; Red Blood Cells 4.03 10^6/uL (4.0-5.20); Red Cell Distribution Width 15.1 % (11.8-14.3); White Blood Cell 2.8 10^3/uL (4.4-10.8)
[2022-03-14 05:21] LABS: Albumin 2.9 g/dL (3.4-5.0); BUN/Creatinine Ratio 21.1; Calcium 8.1 mg/dL (8.5-10.1); Potassium 3.6 mmol/L (3.5-5.1)
[2022-03-14 05:24] LABS: Bilirubin, Total 1.8 mg/dL (0.2-1.0); Total Protein 5.9 g/dL (6.4-8.2)
[2022-03-14] MEDS: ACCU-CHEK COMFORT CURVE STRIP VI SCH (06:55)
[2022-03-14] MEDS: InsuLIN REG 1unit/0.01ml Soln (100units/ml) SC SCH (06:56)
[2022-03-14] MEDS: cefTRIAXone 1GM/50ML D5W 50 ML IV SCH (08:33)
[2022-03-14] MEDS: FAMOTIDINE (10MG/ML) 2ML VL IV SCH ×2 (08:33→21:53)
[2022-03-14 08:58] VITALS: BP 134/72
[2022-03-14 13:00] VITALS: BP 106/62
[2022-03-14 16:56] VITALS: BP 115/64
[2022-03-14 22:00] VITALS: BP 122/69
[2022-03-15] MEDS: IBUPROFEN 600 MG TAB PO PRN (02:25)
[2022-03-15 04:56] VITALS: BP 142/88
[2022-03-15 08:20] LABS: Basophils # (auto) 0 10 ^3/uL (0-0.2); Eosinophils # (auto) 0.1 10 ^3/uL (0-0.8); Monocytes # (auto) 0.3 10 ^3/uL (0-1.3); White Blood Cell 3.1 10^3/uL (4.4-10.8)
[2022-03-15 08:21] LABS: BUN/Creatinine Ratio 13.8; Calcium 8.4 mg/dL (8.5-10.1); Potassium 3.6 mmol/L (3.5-5.1)
[2022-03-15 08:22] LABS: Basophils % (auto) 1.4 % (0.0-2.0); Hematocrit 42.5 % (36.0-46.0); Lymphocytes % (auto) 30.9 % (10.0-50.0); Mean Corpuscular Hemoglobin 33.6 pg (28.0-32.0); Mean Corpuscular Hgb Conc. 32.9 g/dL (32.0-36.0); Mean Corpuscular Volume 101.9 fL (80.0-100.0); Monocytes % (auto) 8.8 % (0.0-12.0); Neutrophils # (auto) 1.8 10 ^3/uL (1.6-8.6); Neutrophils % (auto) 56.9 % (37.0-80.0); Nucleated Red Blood Cells % 0.3 %; Red Blood Cells 4.17 10^6/uL (4.0-5.20); Red Cell Distribution Width 16.3 % (11.8-14.3)
[2022-03-15] MEDS: cefTRIAXone 1GM/50ML D5W 50 ML IV SCH (08:33)
[2022-03-15] MEDS: FAMOTIDINE (10MG/ML) 2ML VL IV SCH ×2 (08:33→21:01)
[2022-03-15 09:00] VITALS: BP 125/70
[2022-03-15 13:00] VITALS: BP 149/68
[2022-03-15 17:00] VITALS: BP 139/74
[2022-03-15 22:00] VITALS: BP 125/71
[2022-03-16 05:00] VITALS: BP 149/79
[2022-03-16 06:34] LABS: Basophils # (auto) 0 10 ^3/uL (0-0.2); Eosinophils # (auto) 0.1 10 ^3/uL (0-0.8); Lymphocytes # (auto) 1.1 10 ^3/uL (0.4-5.4); Monocytes # (auto) 0.4 10 ^3/uL (0-1.3); Neutrophils # (auto) 1.8 10 ^3/uL (1.6-8.6)
[2022-03-16 06:37] LABS: Basophils % (auto) 1.3 % (0.0-2.0); Eosinophils % (auto) 1.7 % (0.0-7.0); Hematocrit 40.8 % (36.0-46.0); Lymphocytes % (auto) 32.2 % (10.0-50.0); Mean Corpuscular Hgb Conc. 34.5 g/dL (32.0-36.0); Mean Corpuscular Volume 98.7 fL (80.0-100.0); Monocytes % (auto) 11.8 % (0.0-12.0); Nucleated Red Blood Cells % 0.2 %; Red Blood Cells 4.13 10^6/uL (4.0-5.20); White Blood Cell 3.4 10^3/uL (4.4-10.8)
[2022-03-16 06:48] LABS: INR 1.3 (0.9-1.15); Partial Thromboplastin Time 25.4 sec (24.6-33.4)
[2022-03-16 07:04] LABS: BUN/Creatinine Ratio 16.7; Calcium 8.5 mg/dL (8.5-10.1); Potassium 3.6 mmol/L (3.5-5.1)
[2022-03-16 09:00] VITALS: BP 131/77
[2022-03-16] MEDS: FAMOTIDINE (10MG/ML) 2ML VL IV SCH ×2 (09:55→21:17)
[2022-03-16] MEDS: cefTRIAXone 1GM/50ML D5W 50 ML IV SCH (09:55)
[2022-03-16 10:23] LABS: Folate (Folic Acid) > 24.00 ng/mL (5.38-24)
[2022-03-16 12:36] LABS: Hepatitis B Surface Antibody Positive (Negative)
[2022-03-16 13:00] VITALS: BP 129/72
[2022-03-16 13:12] LABS: Hepatitis A Total Antibody Negative (Negative)
[2022-03-16] MEDS ORDERED: LIDOCAINE VISCOUS 2% 15ML UD ONE (16:21)
[2022-03-16 17:00] VITALS: BP 143/75
[2022-03-16 17:12] LABS: Hepatitis C Antibody Negative (Negative)
[2022-03-16] MEDS: fentaNYL CITRATE 100 MCG/2 ML VL ONE ×2 (17:37→17:40)
[2022-03-16] MEDS: MIDAZOLAM HCL 5 MG/ML-1ML VIAL ONE ×2 (17:37→17:40)
[2022-03-16] MEDS: diphenhdrAMINE HCL 50 MG/1 ML VL ONE ×2 (17:37→17:39)
[2022-03-16] MEDS: SUCRALFATE 1 GM/10 ML ORAL SUSP PO SCH (21:17)
[2022-03-16 22:00] VITALS: BP 104/54
[2022-03-17 05:00] VITALS: BP 138/69
[2022-03-17] MEDS: SUCRALFATE 1 GM/10 ML ORAL SUSP PO SCH ×2 (06:28→11:30)
[2022-03-17 06:45] LABS: Calcium 8.4 mg/dL (8.5-10.1); Potassium 3.9 mmol/L (3.5-5.1)
[2022-03-17 06:51] LABS: BUN/Creatinine Ratio 20.6; Basophils # (auto) 0 10 ^3/uL (0-0.2); Eosinophils # (auto) 0 10 ^3/uL (0-0.8); Neutrophils # (auto) 1.4 10 ^3/uL (1.6-8.6); Neutrophils % (auto) 48.2 % (37.0-80.0)
[2022-03-17 06:52] LABS: Basophils % (auto) 1.1 % (0.0-2.0); Eosinophils % (auto) 1.4 % (0.0-7.0); Hematocrit 35.1 % (36.0-46.0); Lymphocytes % (auto) 33.2 % (10.0-50.0); Mean Corpuscular Hemoglobin 33.9 pg (28.0-32.0); Mean Corpuscular Hgb Conc. 34.1 g/dL (32.0-36.0); Mean Corpuscular Volume 99.4 fL (80.0-100.0); Monocytes # (auto) 0.5 10 ^3/uL (0-1.3); Monocytes % (auto) 16.1 % (0.0-12.0); Nucleated Red Blood Cells % 0.1 %; Red Blood Cells 3.53 10^6/uL (4.0-5.20); Red Cell Distribution Width 16.3 % (11.8-14.3); White Blood Cell 2.9 10^3/uL (4.4-10.8)
[2022-03-17 08:49] VITALS: BP 132/77
[2022-03-17] MEDS: cefTRIAXone 1GM/50ML D5W 50 ML IV SCH (09:03)
[2022-03-17] MEDS: FAMOTIDINE (10MG/ML) 2ML VL IV SCH (09:03)
[2022-03-17] MEDS ORDERED: SUCR1SUS10 PO (09:55)
[2022-03-17] MEDS ORDERED: PANT40TA2 PO (09:55)
[2022-03-17 12:30] VITALS: BP 132/74
== END 2022-03-17 13:20 | disposition home or self-care (01) | DRG 241 ==
LOC: ER 16:10 → OVERFLOW 03-13 04:23 → CENTRAL 03-13 13:00
PROVIDERS: ADMIT Nurse Practitioner Family; ATTEND Internal Medicine Pulmonary Disease
PROC: 0DB68ZX Excision of Stomach, Via Natural or Artificial Opening Endoscopic, Diagnostic (ICD-10-PCS; 2022-03-16)
PROC: 0DB98ZX Excision of Duodenum, Via Natural or Artificial Opening Endoscopic, Diagnostic (ICD-10-PCS; principal; 2022-03-16 17:31)
DX: K29.70 Gastritis, unspecified, without bleeding (principal); D69.6 Thrombocytopenia, unspecified; E87.1 Hypo-osmolality and hyponatremia; E88.09 Other disorders of plasma-protein metabolism, not elsewhere classified; E86.0 Dehydration; N39.0 Urinary tract infection, site not specified; R74.01 Elevation of levels of liver transaminase levels; Z20.822 Contact with and (suspected) exposure to COVID-19; G89.29 Other chronic pain; K44.9 Diaphragmatic hernia without obstruction or gangrene; K29.90 Gastroduodenitis, unspecified, without bleeding; E78.5 Hyperlipidemia, unspecified; F10.10 Alcohol abuse, uncomplicated; E78.00 Pure hypercholesterolemia, unspecified; Z88.8 Allergy status to other drugs, medicaments and biological substances; Z83.3 Family history of diabetes mellitus; Z90.710 Acquired absence of both cervix and uterus; Z87.442 Personal history of urinary calculi; Z79.899 Other long term (current) drug therapy
CPT/HCPCS: 36415; 71045; 74176; 76705; 80048; 80053; 81001; 82040; 82105; 82607; 82728; 82746; 82962; 83010; 83540; 83550; 83605; 83615; 83690; 83735; 84439; 84443; 84484; 85025; 85610; 85652; 85730; 86704; 86706; 86708; 86803; 86850; 86880; 87040; 87340; 87426; 93005; 96365; 96366; 96375; G0378; J0696; J1815; J1885; J2250; J2543; J3490

== ENCOUNTER 2022-10-05 11:18 | Emergency (ER) | payer MEDICAID ==
[~2022-10-05] VITALS: Ht 157.5 cm; Wt 70.8 kg
[~2022-10-05 11:18] MED LIST changes: +GABA-1250 PO; -GABA300C10 PO; +PANT40TA2 PO; +SUCR1SUS26 PO
[2022-10-05 12:28] LABS: Urine Bacteria NONE SEEN /hpf (None Seen); Urine Blood Negative /uL (Negative); Urine Specific Gravity 1.009 (1.001-1.035); Urine WBC <1 /hpf (0 - 5)
[2022-10-05] MEDS ORDERED: LEVO750T8 PO (14:00)
[2022-10-05 15:01] VITALS: BP 151/87
== END 2022-10-05 15:06 | disposition home or self-care (01) ==
LOC: ER 11:18
DX: R10.9 Unspecified abdominal pain (principal); R30.0 Dysuria; R25.1 Tremor, unspecified; F41.9 Anxiety disorder, unspecified; E78.5 Hyperlipidemia, unspecified; Z87.440 Personal history of urinary (tract) infections; Z90.710 Acquired absence of both cervix and uterus; Z88.8 Allergy status to other drugs, medicaments and biological substances
CPT/HCPCS: 72131; 81001; 82962

== ENCOUNTER 2024-07-12 10:20 | Emergency (ER) | payer MEDICAID ==
[~2024-07-12] VITALS: Ht 157.5 cm; Wt 64.8 kg
[~2024-07-12 10:20] MED LIST changes: -ATO40T PO; +ATOR-507 PO; +LEVO750T8 PO
[2024-07-12 10:47] VITALS: PULSE 81; RESP 18; O2SAT 98
--- NOTE | 2024-07-12 11:08 | ED.PDOC ---
Musculoskeletal HPI Comments 64y F who presents to the ED for chief complaint of lower extremity pain. Pt states she has been having L knee pain for the past 3 days but states over the past 1 days, states she noticed increased pain and swelling and came to the ED for further evaluation. Pt in the ED, otherwise denies shortness of breath, fever, cough, chills, chest pain, headache, dizziness, nausea, or vomiting. Pt denies any associated fall or any noted injury to knee. Pt states she has history of arthritis and states she initially thought the pain was from her arthritis but states the pain worsened since last night night and thus decided to seek care. Pt otherwise has noted stable vitals in the ED. Pt denies any other symptoms at this time. Chief Complaint: Lower Extremity Time Seen by MD: 11:03 Primary Care Provider: Nik Norman Notes: Medications, Allergies Allergies: Coded Allergies: Iodine (Verified Allergy, Unknown, 03/08/21) Home Meds Active Scripts Levofloxacin (Levaquin 750 mg) 750 Mg Tab, 750 MG PO DAILY, #7 TAB Prov:ROBERTA MICHEL MD 10/05/22 Pantoprazole Sodium Sesquihydr (Protonix) 40 Mg Tab, 40 MG PO DAILY PRN for 30 Days, #60 TAB Prov:KURT PETERSON MD 03/17/22 Sucralfate (CARAFATE SUSP) 1 Gm/10 Ml Ss, 1 GM PO QIDACHS for 30 Days, #120 EA Prov:KURT PETERSON MD 03/17/22 Ondansetron (Zofran) 4 Mg Tab, 1 TAB PO Q8HR PRN, #15 TAB Prov:RED VALERIO 12/25/21 Ciprofloxacin Hcl (Ciprofloxacin Hcl) 500 Mg Tab, 1 TAB PO BID for 7 Days, #14 TAB Prov:RED VALERIOP 12/25/21 Cefdinir (Cefdinir) 300 Mg Cap, 1 CAP PO BID for 7 Days, #14 CAP 0 Refills Prov:DMITRY CEJA MD 08/14/21 Ciprofloxacin Hcl (Cipro) 500 Mg Tab, 500 MG PO BID for 7 Days, #14 TAB Prov:SHIREEN BARRAZA 05/02/21 Ondansetron (Zofran) 4 Mg Tab, 4 MG PO BID for 10 Days, #20 MG Prov:ROBIN MARY MD 03/06/21 Levofloxacin (Levaquin) 500 Mg Tab, 500 MG PO DAILY for 10 Days, #10 TAB Prov:ROBIN MARY MD 03/06/21 Reported Medications Gabapentin (Gabapentin) 300 Mg Cap, 300 MG PO TID for 30 Days, MG 03/07/21 Atorvastatin Calcium (Lipitor) 40 Mg Tab, 1 TAB PO DAILY, #30 TAB 5 Refills 12/30/20 Information Source: Patient Mode of Arrival: Ambulatory Brought in by: self Past Medical History PAST MEDICAL HISTORY: Anxiety, High Lipids, UTI'S Surgical History: Hysterectomy, Tonsillectomy 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 Family History Family History: Unknown Social History Smoker: Non-Smoker Alcohol: Occasionally Drugs: Denies Drug Use Lives In: Home Constitutional: denies: chills, diaphoresis, fatigue, fever, malaise, sweats, weakness, others EENTM: denies: blurred vision, double vision, ear bleeding, ear discharge, ear drainage, ear pain, ear ringing, eye pain, eye redness, hearing loss, mouth pain, mouth swelling, nasal discharge, nose bleeding, nose congestion, nose pain, photophobia, tearing, throat pain, throat swelling, voice changes, others Respiratory: denies: cough, hemoptysis, orthopnea, SOB at rest, shortness of breath, SOB with excertion, stridor, wheezing, others Cardiovascular: denies: chest pain, dizzy spells, diaphoresis, Dyspnea on exertion, edema, irregular heart beat, left arm pain, lightheadedness, palpitations, PND, syncope, others Gastrointestinal: denies: abdomen distended, abdominal pain, blood streaked bowels, constipated, diarrhea, dysphagia, difficulty swallowing, hematemesis, melena, nausea, poor appetite, poor fluid intake, rectal bleeding, rectal pain, vomiting, others Genitourinary: denies: abnormal vagina bleeding, burning, dyspareunia, dysuria, flank pain, frequency, hematuria, incontinence, pain, , vagina discharge, urgency, others Neurological: denies: dizziness, fainting, headache, left sided numbness, left sided weakness, numbness, paresthesia, pre-existing deficit, right sided numbness, right sided weakness, seizure, speech problems, tingling, tremors, weakness, others Musculoskeletal: reports: joint swelling (LLE); denies: back pain, gout, joint pain, muscle pain, muscle stiffness, neck pain, others Integumetry: denies: bruises, change in color, change in hair/nails, dryness, laceration, lesions, lumps, rash, wounds, others Allergic/Immunocompromised: denies: Difficulty Healing, Frequent Infections, H gonzalez, Itching, others Hematologic/Lymphatic: denies: anemia, blood clots, easy bleeding, easy bruising, swollen glands, others Endocrine: denies: excessive hunger, excessive sweating, excessive thirst, excessive urination, flushing, intolerance to cold, intolerance to heat, unexplained weight gain, unexplained weight loss, others Psychiatric: denies: anxiety, bipolar disorder, depression, hopeless, panic disorder, schizophrenia, sleepless, suicidal, others All Other Systems: Reviewed and Negative Physical Exam General Appearance: Moderate Distress HEENT: Normal ENT Inspection, Pharynx Normal, TMs Normal Neck: Full Range of Motion, Non-Tender, Normal, Normal Inspection Respiratory: Chest Non-Tender, Lungs Clear, No Accessory Muscle Use, No Respiratory Distress, Normal Breath Sounds Cardiovascular: No Edema, No JVD, No Murmur, No Gallop, Normal Peripheral Pulses, Regular Rate/Rhythm Breast Exam: Deferred Gastrointestinal: No Organomegaly, Non Tender, No Pulsatile Mass, Normal Bowel Sounds, Soft Genitalia: Deferred Pelvic: Deferred Rectal: Deferred Extremities: No calf tenderness, Normal capillary refill, Normal inspection, Normal range of motion, Non-tender, No pedal edema Musculoskeletal : Apperance: Normal Neurologic: Alert, recreation leader II-XII nml as Tested, No Motor Deficits, Normal Affect, Normal Mood, No Sensory Deficits Cerebellar Function: Normal Reflexes: Normal Skin: Dry, Normal Color, Warm Peripheral Pulses: 3+ Radial (R), 3+ Radial (L) Lymphatic: No Adenopathy Was a procedure done? Was a procedure done?: No Differential Diagnosis EXT Differential Diagnosis: Cellulitis, Deep Vein Thrombosis, DJD, Arthritis X-Ray, Labs, Meds, VS Vital Signs Date Time Temp Pulse Resp B/P (MAP) Pulse Ox O2 Delivery O2 Flow Rate FiO2 07/12/24 10:47 81 18 98 Room Air* 0 21 07/12/24 10:47 97.5 81 18 137/71 (93) 98 97.5 07/12/24 10:32 97.8 79 17 127/65 (85) 98 97.8 Patient alert. Complaining of left lower extremity pain. Vitals stable. Answering all questions. No sign of any acute process. DVT study within normal limits. Does have popliteal cyst. No shortness a breath. No chest pain. Was given prescription of Motrin. Explained to the patient. Was told to follow up with her primary care physician. Was told to come back if there is any problem. Time of 1ST Reevaluation: 11:35 Reevaluation 1ST: Unchanged Time of 2ND Reevaluation: 13:40 Reevaluation 2ND: Improved Patient Education/Counseling: Diagnosis, Treatment Family Education/Counseling: No Family Present Additional Information -Reviewed patient's previous visit(s): - The following tests were ordered, and results were reviewed by me: Lt lower DVT US, - Additional information was gathered from interviewing the following independent Historian: none - I reviewed and agreed with the following test results read by other provider: none - I discussed treatments and results with medical personnel and: patient Comprehensive systems review obtained and negative except for what is stated in the HPI. Departure 1 Departure Time of Disposition: 13:41 Impression: Primary Impression: Popliteal cyst Qualified Codes: M71.22 - Synovial cyst of popliteal space [Perez], left knee Disposition: 01 HOME / SELF CARE / HOMELESS Condition: Good e-Prescriptions Ibuprofen Micronized (MOTRIN TABLET) 600 Mg Tb 600 MG PO TID PRN for 3 Days, #9 TAB *Black box warning-NSAIDS can increase risk of [place] & hypertension, GI irritation, ulceration, bleed, perferation. Do not use post cardiac surgery. Use short duration/lowest effective dose. Prov: FLORENCIO DORADO MD 07/12/24 Discharged With: Self Critical Care Note Critical Care Time?: No Stability Stability form required: No Heart Score Heart Score: Heart Score Response (Comments) Value History N/A 0 EKG N/A 0 Age N/A 0 Risk Factors N/A 0 Troponin N/A 0 Total 0 I personally scribed for FLORENCIO DORADO MD ([email or web address]) on 07/12/24 at 11:08. Electronically submitted by Clau Jhaveri ([email or web address]). FLORENCIO DORADO MD Jul 12, 2024 11:08
[2024-07-12] MEDS: IBUPROFEN 600 MG TAB PO ONE (11:30)
--- NOTE | 2024-07-12 11:51 | DVH ---
Left lower extremity venous duplex Clinical History: dvt Comparison: None Technique: Duplex Doppler evaluation of the deep venous system of the left lower extremity from the common femor al vein to the popliteal vein including color Doppler and spectral/pulsed waveform analysis was perfo rmed. Findings: The common femoral vein demonstrates appropriate compressibility and waveform variability. There is compressibility/patency of the great saphenous vein at the proximal thigh. The femoral vein demonstrates appropriate compressibility and waveform variability. The deep femoral vein demonstrates appropriate compressibility and waveform variability. The popliteal vein demonstrates appropriate compressibility and waveform variability. There is normal compressibility at the tibioperoneal trunk. Impression: No left femoropopliteal venous thrombosis. Left popliteal fossa cyst measures 3.9 cm.
[2024-07-12] MEDS ORDERED: IBU600T PO (13:42)
[2024-07-12 13:52] VITALS: BP 126/75; PULSE 75; RESP 20; TEMP 98.3; O2SAT 98
== END 2024-07-12 13:55 | disposition home or self-care (01) ==
LOC: ER 10:20
DX: M71.22 Synovial cyst of popliteal space [Baker], left knee (principal); F41.9 Anxiety disorder, unspecified; E78.5 Hyperlipidemia, unspecified; Z90.710 Acquired absence of both cervix and uterus; Z79.899 Other long term (current) drug therapy; Z91.040 Latex allergy status
CPT/HCPCS: 93971

== ENCOUNTER 2024-12-08 19:16 | Emergency (ER) | payer MEDICAID ==
[~2024-12-08] VITALS: Ht 157.5 cm; Wt 64.4 kg
[~2024-12-08 19:16] MED LIST changes: +IBU600T PO
--- NOTE | 2024-12-08 19:51 | ED.PDOC ---
General HPI Comments 64-year-old female with a history of UTIs, dyslipidemia and anxiety brought in by private car complaining of blood in urine that started about 2 hours ago. Patient states she 1st noticed her urine was pink in color, then this progressed to seeing bright red blood. She denies any fever, abdominal pain, dysuria, flank pain, nausea or vomiting. Chief Complaint: Urinary Time Seen by MD: 19:31 Primary Care Provider: Nik Reviewed notes: Nurses Notes, Medications, Allergies Allergies: Coded Allergies: Iodine (Verified Allergy, Unknown, 03/08/21) Home Meds Active Scripts Cephalexin Monohydrate (Cephalexin) 500 Mg Cap, 1 CAP PO QID for 10 Days, #40 CAP Prov:EVELIA RITTER MD 12/08/24 Ibuprofen Micronized (MOTRIN TABLET) 600 Mg Tb, 600 MG PO TID PRN for 3 Days, #9 TAB *Black box warning-NSAIDS can increase risk of [place] & hypertension, GI irritation, ulceration, bleed, perferation. Do not use post cardiac surgery. Use short duration/lowest effective dose. Prov:FLORENCIO DORADO MD 07/12/24 Levofloxacin (Levaquin 750 mg) 750 Mg Tab, 750 MG PO DAILY, #7 TAB Prov:ROBERTA MICHEL MD 10/05/22 Pantoprazole Sodium Sesquihydr (Protonix) 40 Mg Tab, 40 MG PO DAILY PRN for 30 Days, #60 TAB Prov:KURT PETERSON MD 03/17/22 Sucralfate (CARAFATE SUSP) 1 Gm/10 Ml Ss, 1 GM PO QIDACHS for 30 Days, #120 EA Prov:KURT PETERSON MD 03/17/22 Ondansetron (Zofran) 4 Mg Tab, 1 TAB PO Q8HR PRN, #15 TAB Prov:RED VALERIO 12/25/21 Ciprofloxacin Hcl (Ciprofloxacin Hcl) 500 Mg Tab, 1 TAB PO BID for 7 Days, #14 TAB Prov:RED VALERIO 12/25/21 Cefdinir (Cefdinir) 300 Mg Cap, 1 CAP PO BID for 7 Days, #14 CAP 0 Refills Prov:DMITRY CEJA MD 08/14/21 Ciprofloxacin Hcl (Cipro) 500 Mg Tab, 500 MG PO BID for 7 Days, #14 TAB Prov:SHIREEN BARRAZA 05/02/21 Ondansetron (Zofran) 4 Mg Tab, 4 MG PO BID for 10 Days, #20 MG Prov:ROBIN MARY MD 03/06/21 Levofloxacin (Levaquin) 500 Mg Tab, 500 MG PO DAILY for 10 Days, #10 TAB Prov:ROBIN MARY MD 03/06/21 Reported Medications Gabapentin (Gabapentin) 300 Mg Cap, 300 MG PO TID for 30 Days, MG 03/07/21 Atorvastatin Calcium (Lipitor) 40 Mg Tab, 1 TAB PO DAILY, #30 TAB 5 Refills 12/30/20 Mode of Arrival: Ambulatory Past Medical History PAST MEDICAL HISTORY: Anxiety, High Lipids, UTI'S Surgical History: Hysterectomy, Tonsillectomy 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 Moist mucous membranes.) Neck: Full Range of Motion, Normal Inspection Respiratory: Lungs Clear, No Accessory Muscle Use, No Respiratory Distress, Normal Breath Sounds Cardiovascular: No Edema, No JVD, Regular Rate/Rhythm Breast Exam: Deferred Gastrointestinal: Non Tender, Soft Genitalia: Deferred Pelvic: Deferred Rectal: Deferred Extremities: Normal inspection, Normal range of motion, Non-tender, No pedal edema Neurologic: Alert (Oriented x4), Normal Affect, Normal Mood, Other (Ambulatory) Cerebellar Function: NOT DONE Reflexes: NOT DONE Skin: Dry, Normal Color, Warm Lymphatic: NOT DONE Was a procedure done? Was a procedure done?: No Differential Diagnosis Kidney stone (Female): N/A Kidney stone (Male): N/A Penile/Scrotal: N/A Urinary Problem (Male): N/A Urinary Problem (Female): Pyelonephritis, Urolithiasis, UTI, Other (Coagulopathy, anemia, among others) X-Ray, Labs, Meds, VS Vital Signs Date Time Temp Pulse Resp B/P (MAP) Pulse Ox O2 Delivery O2 Flow Rate FiO2 12/08/24 21:01 83 18 96 Room Air 12/08/24 21:01 97.7 83 18 139/77 (97) 96 97.7 12/08/24 19:18 97.9 93 16 161/78 98 97.9 Lab Test 12/08/24 19:50 12/08/24 19:35 Range/Units White Blood Count 4.9 4.4-10.8 10^3/uL Red Blood Count 4.55 4.0-5.20 10^6/uL Hemoglobin 14.8 12.2-16.2 g/dL Hematocrit 42.2 36.0-46.0 % Mean Corpuscular Volume 92.7 80.0-100.0 fL Mean Corpuscular Hemoglobin 32.5 H 28.0-32.0 pg Mean Corpuscular Hemoglobin Concent 35.0 32.0-36.0 g/dL Red Cell Distribution Width 13.1 11.8-14.3 % Platelet Count 77 L 140-450 10^3/uL Mean Platelet Volume 10.0 6.9-10.8 fL Neutrophils (%) (Auto) 47.6 37.0-80.0 % Lymphocytes (%) (Auto) 40.3 10.0-50.0 % Monocytes (%) (Auto) 8.4 0.0-12.0 % Eosinophils (%) (Auto) 2.3 0.0-7.0 % Basophils (%) (Auto) 1.4 0.0-2.0 % Neutrophils # (Auto) 2.3 1.6-8.6 10 ^3/uL Lymphocytes # (Auto) 2.0 0.4-5.4 10 ^3/uL Monocytes # (Auto) 0.4 0-1.3 10 ^3/uL Eosinophils # (Auto) 0.1 0-0.8 10 ^3/uL Basophils # (Auto) 0.1 0-0.2 10 ^3/uL Nucleated Red Blood Cells 0.1 % Prothrombin Time 12.2 H 9.3-11.8 sec Prothrombin Time INR 1.17 H 0.9-1.15 Activated Partial Thromboplast Time 27.3 24.5-34.5 SEC Sodium Level 140 136-145 mmol/L Potassium Level 3.7 3.5-5.1 mmol/L Chloride Level 107 98-107 mmol/L Carbon Dioxide Level 23 20-31 mmol/L Anion Gap 10 5-15 Blood Urea Nitrogen 12 9-23 mg/dL Creatinine 0.68 0.550-1.02 mg/dL Glomerular Filtration Rate Calc 98 >90 mL/min BUN/Creatinine Ratio 17.6 10.0-20.0 Serum Glucose 105 74-106 mg/dL Calcium Level 9.4 8.7-10.4 mg/dL Urine Color Colorless Yellow Urine Clarity Clear Clear Urine pH 7.0 5.0-9.0 Urine Specific [place] 1.002 1.001-1.035 Urine Protein Negative Negative Urine Ketones Negative Negative Urine Blood 3+ H Negative /uL Urine Nitrite Negative Negative Urine Bilirubin Negative Negative Urine Urobilinogen Normal Negative mg/dL Urine Leukocyte Esterase Negative Negative /uL Urine RBC 2 0 - 4 /hpf Urine Microscopic WBC < 1 0-5 /HPF Urine Squamous Epithelial Cells None seen <5 /hpf Urine Bacteria Few H None Seen /hpf Urine Glucose Normal Normal mg/dL Current Medications Medications (Trade) Dose Ordered Sig/Carolyn Route Start Time Stop Time Status Last Admin Lidocaine HCl (Xylocaine 1%) 1.9 ml ONCE ONCE IJ 12/08/24 20:45 12/08/24 20:46 DC 12/08/24 20:46 Ceftriaxone Sodium (Rocephin) 1,000 mg ONCE ONCE IM 12/08/24 20:45 12/08/24 20:46 DC 12/08/24 20:46 X-Ray, Labs, Meds, VS Comment 64-year-old female with a history of dyslipidemia, anxiety and frequent UTIs complaining of asymptomatic hematuria Vitals remarkable for BP 161/78 Exam unremarkable Rhythm strip independently interpreted by me: Sinus rhythm, rate 93, no ectopy. CBC and basic metabolic panel unremarkable, PT 12.2, INR 1.17, UA positive for blood and bacteria consistent with a UTI Patient treated with the following in the ED: Rocephin 1 g IM On re-evaluation, patient is asymptomatic with stable vitals. Patient appears stable for discharge with close outpatient follow-up with her primary physician. Rx Keflex Time of 1ST Reevaluation: 20:00 Reevaluation 1ST: Unchanged Patient Education/Counseling: Diagnosis, Treatment, Need For Follow Up Family Education/Counseling: No Family Present SEPSIS Sepsis Screen Date sepsis recognized/suspect: Dec 08, 2024 Time Sepsis recognized/suspect: 1919 Recent Procedure: No On Antibiotic Therapy: No Respiratory Rate >20: No Heart Rate >90: No Temp<36 C (96.8 F) or >38.3 C: No SBP <90 or MAP <65 mmHG: No New Acute Mental Status Change: No Is the patient on CPAP, BIPAP,: No Physician Orders Blood Culture (12/08/24 19:32) Vital Signs Date Time Temp Pulse Resp B/P (MAP) Pulse Ox O2 Delivery O2 Flow Rate FiO2 12/08/24 21:01 83 18 96 Room Air 12/08/24 21:01 97.7 83 18 139/77 (97) 96 97.7 12/08/24 19:18 97.9 93 16 161/78 98 97.9 Laboratory Tests Test 12/08/24 19:50 White Blood Count 4.9 10^3/uL (4.4-10.8) Medications Medications Dose Ordered Sig/Carolyn Route Start Time Stop Time Status Last Admin Dose Admin Ceftriaxone Sodium 1,000 mg ONCE ONCE IM 12/08/24 20:45 12/08/24 20:46 DC 12/08/24 20:46 Lidocaine HCl 1.9 ml ONCE ONCE IJ 12/08/24 20:45 12/08/24 20:46 DC 12/08/24 20:46 Departure 1 Departure Time of Disposition: 21:00 Impression: Primary Impression: UTI (urinary tract infection) Disposition: HOME / SELF CARE / HOMELESS Condition: Stable Additional Instructions: Your blood tests were unremarkable. Your urine test showed you have a urinary tract infection. I have prescribed antibiotics. Follow-up with your primary doctor in 1-2 days. Return to ER for persistent or worsening symptoms. e-Prescriptions Cephalexin Monohydrate (Cephalexin) 500 Mg Cap 1 CAP PO QID for 10 Days, #40 CAP Prov: EVELIA RITTER MD 12/08/24 Discharged With: Relative Critical Care Note Critical Care Time?: No Stability Stability form required: No Heart Score Heart Score: Heart Score Response (Comments) Value History N/A 0 EKG N/A 0 Age N/A 0 Risk Factors N/A 0 Troponin N/A 0 Total 0 I personally scribed for EVELIA RITTER MD ([email or web address]) on 12/08/24 at 19:55. Electronically submitted by Adolfo Rascon ([email or web address]). EVELIA RITTER MD Dec 08, 2024 19:51
[2024-12-08 19:56] LABS: Urine Protein, UAD Negative (Negative)
[2024-12-08 20:03] LABS: Hematocrit 42.2 % (36.0-46.0); Hemoglobin 14.8 g/dL (12.2-16.2); Mean Corpuscular Hemoglobin 32.5 pg (28.0-32.0); Mean Corpuscular Volume 92.7 fL (80.0-100.0); Nucleated Red Blood Cells % 0.1 %
[2024-12-08 20:10] LABS: Potassium 3.7 mmol/L (3.5-5.1); Sodium 140 mmol/L (136-145)
[2024-12-08 20:11] LABS: Anion Gap 10 (5-15); Calcium 9.4 mg/dL (8.7-10.4); Carbon Dioxide 23 mmol/L (20-31)
[2024-12-08 20:16] LABS: BUN/Creatinine Ratio 17.6 (10.0-20.0); Blood Urea Nitrogen 12 mg/dL (9-23); Glucose 105 mg/dL (74-106)
[2024-12-08 20:17] LABS: Chloride 107 mmol/L (98-107)
[2024-12-08 20:18] LABS: INR 1.17 (0.9-1.15); Partial Thromboplastin Time 27.3 SEC (24.5-34.5); Prothrombin Time 12.2 sec (9.3-11.8)
[2024-12-08] MEDS ORDERED: CEPH500C PO (20:33)
[2024-12-08] MEDS ORDERED: cefTRIAXone W LIDOCAINE 1 GM IM IM ONE (20:45)
[2024-12-08] MEDS: LIDOCAINE 1% HCL (LOCAL ANESTH.) INJ 20ML MDV IJ ONE (20:46)
[2024-12-08] MEDS: cefTRIAXone SOD 1,000 MG VL IM ONE (20:46)
[2024-12-08 21:01] VITALS: BP 139/77; PULSE 83; RESP 18; TEMP 97.7; O2SAT 96
== END 2024-12-08 21:12 | disposition home or self-care (01) ==
LOC: ER 19:22
DX: N39.0 Urinary tract infection, site not specified (principal); Z79.899 Other long term (current) drug therapy; Z90.710 Acquired absence of both cervix and uterus; Z88.8 Allergy status to other drugs, medicaments and biological substances
CPT/HCPCS: 36415; 80048; 81001; 85025; 85610; 85730; 87040; 96372; 99283; J0696; J2003